=== PATIENT | female | born 1950 | race Caucasian/White ===

== ENCOUNTER → 2018-08-17 | Outpatient (CLI) | payer MEDICARE ==
--- NOTE | 2018-08-17 11:18 | RADIOLOGY REPORT (SQ) ---
EXAM DESCRIPTION: CT ABD/PELVIS WITH IV ORAL COMPLETED DATE/TIME: 08/17/2018 10:29 am REASON FOR STUDY: RIGHT LOWER QUADRANT PAIN R10.31 RIGHT LOWER QUADRANT PAIN R10.813 RIGHT LOWER Q UADRANT ABDOMINAL TENDERNESS COMPARISON: CT abdomen pelvis 04/28/2012 TECHNIQUE: CT scan of the abdomen and pelvis performed using helical scanning technique with dynamic intravenous contrast injection. Patient drank oral contrast. Images reviewed with lung, soft tissue , and bone windows. Reconstructed coronal and sagittal MPR images reviewed. Delayed images for evalua tion of the urinary system also acquired. All images stored on PACS. All CT scanners at this facility use dose modulation, iterative reconstruction, and/or weight based d osing when appropriate to reduce radiation dose to as low as reasonably achievable (ALARA). [facility]: Dose Right [facility]: CareDose [facility]: Dose Right [facility]: Teradose 4D [facility]: [employer] CONTRAST TYPE AND DOSE: contrast/concentration: Isovue 350.00 mg/ml; Total Contrast Delivered: 81.0 ml; Total Saline Delivered: 68.0 ml RENAL FUNCTION: GFR > 60. RADIATION DOSE: CT Rad equipment meets quality standard of care and radiation dose reduction techniq ues were employed. CTDIvol: 5.4 - 6.2 mGy. DLP: 593 mGy-cm.. LIMITATIONS: None. FINDINGS: LOWER CHEST: Lungs are clear. Moderate coronary artery calcifications. Spotty aortic santana ve calcification. LIVER: Normal size. No masses. No dilated ducts. SPLEEN: Normal size. No focal lesions. PANCREAS: No masses. No significant calcifications. No adjacent inflammation or peripancreatic fluid collections. Pancreatic duct not dilated. GALLBLADDER: No identified stones by CT criteria. No inflammatory changes to suggest cholecystitis. ADRENAL GLANDS: No significant masses or asymmetry. RIGHT KIDNEY AND URETER: No solid masses. No significant calcifications. No hydronephrosis or hyd roureter. LEFT KIDNEY AND URETER: No solid masses. No significant calcifications. No hydronephrosis or hydr oureter. AORTA AND VESSELS: No abdominal aortic aneurysm. Celiac artery origin is patent. Dense calcificatio n at the origin of the superior mesenteric artery with greater than 75% stenosis best shown on axial images 28-30, coronal images 44 through 47, and sagittal images 42 through 44. Renal arteries are pa tent. Inferior mesenteric artery patent. No focal stenosis of the common iliac arteries RETROPERITONEUM: No retroperitoneal adenopathy, hemorrhage or masses. BOWEL AND PERITONEAL CAVITY: Patient drank oral contrast. No CT evidence of bowel obstruction or karis e intraperitoneal air or fluid. No colonic diverticuli or CT signs of acute diverticulitis APPENDIX: Normal. PELVIS: No mass. No free fluid. Normal bladder. ABDOMINAL WALL: No masses. No hernias. BONES: No significant or acute findings. OTHER: No other significant finding. 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 TECHNICAL DOCUMENTATION: JOB ID: [id number] Quality ID # [id number]: Final reports with documentation of one or more dose reduction techniques (e.g., Au tomated exposure control, adjustment of the mA and/or kV according to patient size, use of iterative reconstruction technique) 2010 [employer]- All Rights Reserved Reading location - IP/workstation name: [email or web address]
== END ==
LOC: RAD 09:59
PROVIDERS: ATTEND Internal Medicine Gastroenterology
DX: R10.31 Right lower quadrant pain (principal); I77.1 Stricture of artery
CPT/HCPCS: 74177; 82565

== ENCOUNTER → 2018-09-15 | Outpatient (CLI) | payer MEDICARE ==
[~2018-09-15] MED LIST: REGADENOSON INJ 0.4 MG/5 ML DISP.SYRIN IV ONE
--- NOTE | 2018-09-15 13:01 | DRAGON STRESS TEST REPORT ---
Intravenous Lexiscan Cardiolite stress test using single photon emmision computerized tomography. Date of procedure: 09/15/2018. Ordering Provider: Dr. Miroslava Kim. Patient's status: Out Patient. Indication: Shortness Of Breath. Coronary risk factors: Age, tobacco abuse disorder, and family history of coronary artery disease. Resting EKG: Sinus Bradycardia.. No acute changes. Stress EKG: No changes of ischemia. The patient had no chest pain or discomfort. Due to her increased warmth in her head after the injection of IV Lexiscan, the patient had a panic attack, and complaint of shortness of breath. Physical exam showed no wheezing. This subsided and the patient came back to normal state, after drinking Pepsi. There were no EKG changes during this time. There was no arrhythmias seen. Reason for termination: Protocol. Conclusions: Normal EKG and hemodynamic response to IV Lexiscan. Nuclear data: At rest the patient was given 11.13 millicuries of technetium 99m sestamibi injected intravenously. As per protocol rest non gated SPECT images were obtained. Subsequently the patient was given intravenous Lexiscan at a dose of 0.4 mg in 5 mL intravenously, followed by flush with normal saline. Subsequently the stress dose of 34.7 millicuries of technetium 99m sestamibi was injected intravenously. As per protocol stress gated images were obtained. Nuclear interpretation: Review of images showed that all segments of the myocardium had normal perfusion at rest, and normal perfusion post stress with IV Lexiscan. All segments of the myocardium had normal motion, contraction, and thickening by gated study. T. I D. ratio was normal at 1.01. There is no transient ischemic dilatation of the left ventricle. Computer read rest, and stress left ventricular ejection fraction were 70 %, and 65 %, respectively. Conclusion: 1. There is no scintigraphic evidence of Lexiscan induced myocardial ischemia. 2. There is no scintigraphic evidence of myocardial infarction/scar. Recommendations: Aggressive risk factor modification, and treating the underlying co- morbidities. Recommend strong reassurance to the patient., And tobacco cessation counseling. MTDD
== END ==
LOC: RAD 07:11
PROVIDERS: ATTEND Specialist
DX: R06.02 Shortness of breath (principal)
CPT/HCPCS: 93017; 78452; A9500; J2785; Q9969

== ENCOUNTER → 2018-09-16 | Outpatient (CLI) | payer MEDICARE ==
--- NOTE | 2018-09-21 21:35 | XCELERA REPORT ---
[address] [address] Transthoracic Echocardiogram Report Name: REMINGTON STONE Age: 67 yrs Gender: Female : 1950 Patient Status: Outpatient Patient Location: [facility] Study Date: 09/16/2018 11:18 AM Height: 66 in Weight: 155 lb BSA: 1.8 m2 Procedure: A two-dimensional transthoracic echocardiogram with color flow and Doppler was performed. Study Quality: Good. Reason For Study: SOB History: Shortness of breath. Ordering Physician: MIROSLAVA CANTU Performed By: Meng Pugh Interpretation Summary The left ventricle is normal in size. There is normal left ventricular wall thickness. LV EF is > than 65% Left ventricular systolic function is normal. Doppler measurements suggest normal left ventricular diastolic function The left ventricular wall motion is normal. There is no thrombus. There is no ventricular septal defect visualized. The right ventricle is normal in size and function. The right atrium is normal. The left atrial size is normal. The interatrial septum is intact with no evidence for an atrial septal defect. There is no Doppler evidence for an interatrial shunt There is no evidence of mitral valve prolapse. There is no vegetation seen on the mitral valve. There is no mitral valve stenosis. There is a trace amount of mitral regurgitation There is no aortic valvular vegetation. There is no aortic valve stenosis There is no LVOT obstruction. No aortic regurgitation is present. There is no tricuspid stenosis. There is a trace to mild amount of tricuspid regurgitation There is moderate pulmonary hypertension by echo TVSP is 51 to 56 mm of Hg , with RA mean of 5 to 10. There is no pulmonic valvular stenosis. There is a trace amount of pulmonic regurgitation The aortic root is normal size. The inferior vena cava appeared normal and decreased > 50% with respiration (RAP 5-10 mmHg) There is no pericardial effusion. MMode/2D Measurements & Calculations RVDd: 2.9 cm LVIDd: 4.8 cm FS: 37.7 % Ao root diam: 2.6 cm IVSd: 0.81 cm LVIDs: 3.0 cm EDV(Teich): 105.4 ml Ao root area: 5.5 cm2 LVPWd: 0.84 cm ESV(Teich): 34.1 ml LA dimension: 3.0 cm EF(Teich): 67.7 % Doppler Measurements & Calculations MV E max amberly: MV P1/2t max amberly: Ao V2 max: LV V1 max P.2 cm/sec 86.4 cm/sec 146.6 cm/sec 6.6 mmHg MV A max amberly: MV P1/2t: 92.8 msec Ao max PG: LV V1 max: 69.7 cm/sec MVA(P1/2t): 2.4 cm2 8.6 mmHg 128.8 cm/sec MV E/A: 1.2 MV dec slope: 272.6 cm/sec2 MV dec time: 0.22 sec PA V2 max: PI end-d amberyl: TR max amberly: MV P1/2t-pr_phl: 80.5 cm/sec 58.9 cm/sec 336.6 cm/sec 92.8 msec PA max PG: TR max P.6 mmHg 45.3 mmHg Left Ventricle The left ventricle is normal in size. There is normal left ventricular wall thickness. LV EF is > than 65%. Left ventricular systolic function is normal. Doppler measurements suggest normal left ventricular diastolic function. The left ventricular wall motion is normal. There is no thrombus. There is no ventricular septal defect visualized. Right Ventricle The right ventricle is normal in size and function. Atria The right atrium is normal. The left atrial size is normal. The interatrial septum is intact with no evidence for an atrial septal defect. There is no Doppler evidence for an interatrial shunt. Mitral Valve There is no evidence of mitral valve prolapse. There is no vegetation seen on the mitral valve. There is no mitral valve stenosis. There is a trace amount of mitral regurgitation. Aortic Valve There is no aortic valvular vegetation. There is no aortic valve stenosis. There is no LVOT obstruction. No aortic regurgitation is present. Tricuspid Valve There is no tricuspid stenosis. There is a trace to mild amount of tricuspid regurgitation. There is moderate pulmonary hypertension by echo. TVSP is 51 to 56 mm of Hg , with RA mean of 5 to 10. Pulmonic Valve There is no pulmonic valvular stenosis. There is a trace amount of pulmonic regurgitation. Great Vessels The aortic root is normal size. The inferior vena cava appeared normal and decreased > 50% with respiration (RAP 5-10 mmHg). Effusions There is no pericardial effusion. : MIROSLAVA CANTU > Miroslava Cantu
== END ==
LOC: SP 11:42
PROVIDERS: ATTEND Specialist
DX: R06.02 Shortness of breath (principal)
CPT/HCPCS: 93306

== ENCOUNTER 2018-11-12 12:34 | Emergency (ER) | payer MEDICARE ==
--- NOTE | 2018-11-12 13:24 | EKG REPORT ---
SEVERITY:- BORDERLINE ECG - SINUS OR ECTOPIC ATRIAL RHYTHM SHORT NC INTERVAL, ACCELERATED AV CONDUCTION BORDERLINE LEFT AXIS DEVIATION : Confirmed by: Mandeep Nieto MD 12-Nov-2018 13:23:37
--- NOTE | 2018-11-12 14:23 | ER Document Report ---
ED Medical Screen (RME) - General Chief Complaint: Chest Pain Stated Complaint: SHORT OF BREATH,NAUSEA Time Seen by Provider: 11/12/18 14:07 Primary Care Provider: CHRISTINA CANTU MD [Primary Care Provider] - Follow up as needed Notes: Patient is a 67-year-old female that presents to the emergency department for chief complaint of shortness of breath and chest pain as well as dyspnea on exertion. ROS: Other than noted above, the 12 point review of systems was reviewed with the patient and were negative, all pertinent findings are included in the HPI. PHYSICAL EXAMINATION: Vital signs reviewed. GENERAL: Well-appearing, well-nourished and in no acute distress. HEAD: Atraumatic, normocephalic. EYES: Pupils equal round extraocular movements intact, conjunctiva are normal. ENT: Nares patent NECK: Normal range of motion CV: Heart regular rate and rhythm LUNGS: No respiratory distress, clear to auscultation bilaterally Musculoskeletal: Normal range of motion NEUROLOGICAL: Normal speech PSYCH: Normal mood, normal affect. MDM: Patient seen and examined for rapid initial assessment. Vital signs reviewed. A comprehensive ED assessment and evaluation of the patient, analysis of test results and completion of the medical decision making process will be conducted by additional ED providers. *Note is created using voice recognition software and may contain spelling, syntax or grammatical errors. TRAVEL OUTSIDE OF THE [place] IN LAST 30 DAYS: No - Related Data Allergies/Adverse Reactions: acetaminophen [From Percocet] Allergy (Intermediate, Verified 08/09/12 08:45) Generalized Itching oxycodone HCl [From Percocet] Allergy (Intermediate, Verified 08/09/12 08:45) Generalized Itching Past Medical History - Past Medical History Cardiac Medical History: Denies: Hx Coronary Artery Disease, Hx Heart Attack, Hx Hypertension Pulmonary Medical History: Reports: Hx Bronchitis, Hx Pneumonia Denies: Hx Asthma, Hx COPD Neurological Medical History: Denies: Hx Cerebrovascular Accident, Hx Seizures Renal/ Medical History: Denies: Hx Peritoneal Dialysis GI Medical History: Denies: Hx Hepatitis, Hx Hiatal Hernia, Hx Ulcer Musculoskeltal Medical History: Denies Hx Arthritis Infectious Medical History: Denies: Hx Hepatitis Past Surgical History: Reports: Hx Hysterectomy - MOISES. Denies: Hx Mastectomy, Hx Open Heart Surgery, Hx Pacemaker - Immunizations Hx Diphtheria, Pertussis, Tetanus Vaccination: Yes Physical Exam - Vital signs Vitals: Temp Pulse Resp BP Pulse Ox 98.3 F 77 16 116/81 100 11/12/18 12:53 11/12/18 12:53 11/12/18 12:53 11/12/18 12:53 11/12/18 12:53 Course - Vital Signs Vital signs: Temp Pulse Resp BP Pulse Ox 98.3 F 77 16 116/81 100 11/12/18 12:53 11/12/18 12:53 11/12/18 12:53 11/12/18 12:53 11/12/18 12:53 Doctor's Discharge - Discharge Referrals: CHRISTINA CANTU MD [Primary Care Provider] - Follow up as needed
[2018-11-12 15:12] LABS: ABSOLUTE BASOPHILS # (AUTO) 0.1 10^3/uL (0.0-0.2); ABSOLUTE EOSINOPHILS # (AUTO) 0.1 10^3/uL (0.0-0.6); ABSOLUTE LYMPHOCYTES (AUTO) 1.5 10^3/uL (0.5-4.7); ABSOLUTE MONOCYTES (AUTO) 0.4 10^3/uL (0.1-1.4); ABSOLUTE NEUT (AUTO) 3.4 10^3/uL (1.7-8.2); EOSINOPHILS % (AUTO) 2.1 % (0-6); LYMPHOCYTES % (AUTO) 27.1 % (13-45); MEAN CORPUSCULAR HEMOGLOBIN 27.3 pg (27.0-33.4); MEAN CORPUSCULAR HGB CONC 32.8 g/dL (32.0-36.0); MEAN CORPUSCULAR VOLUME 83 fl (80-97); MONOCYTES % (AUTO) 6.8 % (3-13); PLATELET COUNT 331 10^3/uL (150-450); RED BLOOD COUNT 2.16 10^6/uL (3.72-5.28); RED CELL DISTRIBUTION WIDTH 15.5 % (11.5-14.0); TOTAL CELLS COUNTED % (AUTO) 100 %; WHITE BLOOD COUNT 5.5 10^3/uL (4.0-10.5)
[2018-11-12 15:17] LABS: HEMOGLOBIN 5.9 g/dL (12.0-15.5)
[2018-11-12] MEDS ORDERED: NORMAL SALINE 250 ML IV PRN (15:18)
[2018-11-12 15:36] LABS: ALANINE AMINOTRANSFERASE 42 U/L (9-52); ALBUMIN 4.5 g/dL (3.5-5.0); ALKALINE PHOSPHATASE 112 U/L (38-126); ANION GAP 8 (5-19); ASPARTATE AMINO TRANSFERASE 34 U/L (14-36); BILIRUBIN,DIRECT 0.1 mg/dL (0.0-0.4); BILIRUBIN,TOTAL 0.3 mg/dL (0.2-1.3); BLOOD UREA NITROGEN 8 mg/dL (7-20); CALCIUM 9.9 mg/dL (8.4-10.2); CARBON DIOXIDE 24 mmol/L (22-30); CHLORIDE 108 mmol/L (98-107); CREATINE KINASE 74 U/L (30-135); GLUCOSE 96 mg/dL (75-110); POTASSIUM 4.3 mmol/L (3.6-5.0); SODIUM 140.1 mmol/L (137-145); TOTAL PROTEIN 6.7 g/dL (6.3-8.2)
--- NOTE | 2018-11-12 15:41 | RADIOLOGY REPORT (SQ) ---
EXAM DESCRIPTION: CHEST SINGLE VIEW COMPLETED DATE/TIME: 11/12/2018 3:33 pm REASON FOR STUDY: shortness of breath COMPARISON: AP CHEST 08/08/2010 EXAM PARAMETERS: NUMBER OF VIEWS: One view. TECHNIQUE: Single frontal radiographic view of the chest acquired. RADIATION DOSE: NA LIMITATIONS: None. FINDINGS: LUNGS AND PLEURA: No opacities, masses or pneumothorax. No pleural effusion. MEDIASTINUM AND HILAR STRUCTURES: No masses. Contour normal. HEART AND VASCULAR STRUCTURES: Heart normal in size. Normal vasculature. BONES: No acute findings. HARDWARE: None in the chest. OTHER: No other significant finding. IMPRESSION: NO ACUTE RADIOGRAPHIC FINDING IN THE CHEST. TECHNICAL DOCUMENTATION: JOB ID: [id number] [employer]- All Rights Reserved Reading location - IP/workstation name: [email or web address]
[2018-11-12 15:47] LABS: CREATINE KINASE MB 0.71 ng/mL (<4.55); NT PRO BNP 504 pg/mL (5-900); TROPONIN I < 0.012 ng/mL
--- NOTE | 2018-11-12 15:51 | ER Document Report ---
ED General - General Chief Complaint: Chest Pain Stated Complaint: SHORT OF BREATH,NAUSEA Time Seen by Provider: 11/12/18 14:07 Primary Care Provider: CHRISTINA CANTU MD [ACTIVE STAFF] - Follow up as needed Mode of Arrival: Ambulatory Information source: Patient Notes: 67-year-old female presents emergency department complaints of chest tightness, shortness of breath, nausea, lightheadedness that is been going on for the last couple of days. Patient states that she went to [facility] and had a mesenteric stent placed by Dr. Singleton, vascular surgery approximately 8 weeks ago. She states that initially she was on aspirin and Plavix. She states that she began having some dark stools and contacted Dr. Singleton and was told to stop the Plavix. Patient states that she is just been taking the aspirin and atorvastatin. She states over the last couple of days she has had a pressure sensation in the left chest. No radiation of the pain. No alleviating or exac erbating factors. She is also had shortness of breath with exertion. She states that she does smoke but denies a history of COPD. She is not on home oxygen and does not use any DuoNeb treatments. Patient denies a history of coronary artery disease, diabetes, hypertension, family history of coronary artery disease. She states that she does have a history of hyperlipidemia. She denies any history of DVT, PE, calf pain, leg swelling. She denies abdominal pain, diarrhea, constipation. TRAVEL OUTSIDE OF THE [place] IN LAST 30 DAYS: No - HPI Onset: Last week Onset/Duration: Gradual, Persistent Quality of pain: Pressure Severity: Mild Associated symptoms: Shortness of breath Exacerbated by: Walking Relieved by: Denies Similar symptoms previously: No Recently seen / treated by doctor: No - Related Data Allergies/Adverse Reactions: acetaminophen [From Percocet] Allergy (Intermediate, Verified 08/09/12 08:45) Generalized Itching oxycodone HCl [From Percocet] Allergy (Intermediate, Verified 08/09/12 08:45) Generalized Itching Past Medical History - General Information source: Patient - Social History Smoking Status: Current Every Day Smoker Family History: CAD - Father of a massive PR in his 60s, the mother is alive and well and quite active at 78. The patient reports that phenotypically she looks like her mother. Patient has suicidal ideation: No Patient has homicidal ideation: No - Past Medical History Cardiac Medical History: Denies: Hx Coronary Artery Disease, Hx Heart Attack, Hx Hypertension Pulmonary Medical History: Reports: Hx Bronchitis, Hx Pneumonia Denies: Hx Asthma, Hx COPD Neurological Medical History: Denies: Hx Cerebrovascular Accident, Hx Seizures Renal/ Medical History: Denies: Hx Peritoneal Dialysis GI Medical History: Denies: Hx Hepatitis, Hx Hiatal Hernia, Hx Ulcer Musculoskeletal Medical History: Denies Hx Arthritis Infectious Medical History: Denies: Hx Hepatitis Past Surgical History: Reports: Hx Hysterectomy - MOISES. Denies: Hx Mastectomy, Hx Open Heart Surgery, Hx Pacemaker - Immunizations Hx Diphtheria, Pertussis, Tetanus Vaccination: Yes Review of Systems - Review of Systems Constitutional: No symptoms reported EENT: No symptoms reported Cardiovascular: Chest pain Respiratory: No symptoms reported Gastrointestinal: No symptoms reported Genitourinary: No symptoms reported Musculoskeletal: No symptoms reported Skin: No symptoms reported Hematologic/Lymphatic: No symptoms reported Neurological/Psychological: No symptoms reported -: Yes All other systems reviewed and negative Physical Exam - Vital signs Vitals: Temp Pulse Resp BP Pulse Ox 98.3 F 77 16 116/81 100 11/12/18 12:53 11/12/18 12:53 11/12/18 12:53 11/12/18 12:53 11/12/18 12:53 - Notes Notes: PHYSICAL EXAMINATION: GENERAL: Well-appearing, well-nourished and in no acute distress. HEAD: Atraumatic, normocephalic. EYES: Pupils equal round and reactive to light, extraocular movements intact, conjunctiva are normal. ENT: Nares patent, oropharynx clear without exudates. Moist mucous membranes. NECK: Normal range of motion, supple without lymphadenopathy LUNGS: Breath sounds clear to auscultation bilaterally and equal. No wheezes rales or rhonchi. HEART: Regular rate and rhythm without murmurs ABDOMEN: Soft, nontender, nondistended abdomen. No guarding, no rebound. No masses appreciated. Female : deferred Musculoskeletal: Normal range of motion, no pitting or edema. No cyanosis. NEUROLOGICAL: Cranial nerves grossly intact. Normal speech, normal gait. Normal sensory, motor exams PSYCH: Normal mood, normal affect. SKIN: Warm, Dry, normal turgor, no rashes or lesions noted. Course - Re-evaluation Re-evalutation: 11/12/18 15:50 EKG: Ventricular rate 78, OR interval 96, QRS duration 84, QTc 447, sinus rhythm. No ST segment elevation. 11/12/18 16:47 Patient's hemoglobin is 5.9. 2 units of packed red blood cells were ordered. Rectal exam done. Patient had Hemoccult positive stool. The remainder of the patient's labs were within normal limits. Chest x-ray did not show an acute process. D-dimer was normal. I feel that the patient's symptoms are releated to the anemia. I spoke with the general surgeon on-call, Dr. Poe. He is agreeable with consulting on the patient if necessary. I spoke with the hospitalist clinical rehab liaison. Dr. Goel is agreeable with admission. 11/12/18 17:40 Dr. Poe called me back and said that with her history of the mesenteric genie nts that she needs to go back to [facility]. I contacted [facility] for transfer. is agreeable with transfer. - Vital Signs Vital signs: Temp Pulse Resp BP Pulse Ox 98.3 F 77 16 116/81 100 11/12/18 12:53 11/12/18 12:53 11/12/18 12:53 11/12/18 12:53 11/12/18 12:53 - Laboratory Result Diagrams: 11/12/18 14:56 11/12/18 14:56 Laboratory results interpreted by me: 11/12/18 11/12/18 11/12/18 14:56 14:56 15:47 RBC 2.16 L Hgb 5.9 L Hct 18.0 L RDW 15.5 H Chloride 108 H Crossmatch See Detail Discharge - Discharge Clinical Impression: GI bleed Qualifiers: GI bleed type/associated pathology: melena Qualified Code(s): K92.1 - Melena Anemia Qualifiers: Anemia type: unspecified type Qualified Code(s): D64.9 - Anemia, unspecified Chest pain Qualifiers: Chest pain type: unspecified Qualified Code(s): R07.9 - Chest pain, unspecified Dyspnea Qualifiers: Dyspnea type: dyspnea on exertion Qualified Code(s): R06.09 - Other forms of dyspnea Condition: Stable Disposition: [facility] Referrals: CHRISTINA CANTU MD [ACTIVE STAFF] - Follow up as needed
[2018-11-12] MEDS ORDERED: PANTOPRAZOLE SODIUM 40 MG VIAL IV ONE (16:32)
[2018-11-12] MEDS ORDERED: PANTOPRAZOLE SODIUM 40 MG VIAL IV PRN (16:32)
[2018-11-12 16:35] LABS: INTERNATIONAL RATION (INR) 0.92; PROTHROMBIN TIME 12.8 SEC (11.4-15.4)
[2018-11-12 16:36] LABS: PARTIAL THROMBOPLASTIN TIME 29.1 SEC (23.5-35.8)
[2018-11-12 20:54] VITALS: BP 113/58
== END 2018-11-12 21:00 | disposition short-term general hospital (02) ==
LOC: ER 12:34 → UNDOADMOB 16:55 → EH 16:55 → ER 21:00
DX: K92.1 Melena (principal); D64.9 Anemia, unspecified; R07.9 Chest pain, unspecified; R06.09 Other forms of dyspnea; R06.02 Shortness of breath; R11.0 Nausea; R42 Dizziness and giddiness; F17.200 Nicotine dependence, unspecified, uncomplicated; Z90.710 Acquired absence of both cervix and uterus
CPT/HCPCS: 93005; 99285; 96361; 96374; 86900; 86901; 36415; 82553; 36430; 86850; 82550; 85025; 85610; 85730; 80053; 84484; 86920; 85379; 83880; 71045; 93010; P9016; C9113; J7050; S0164

== ENCOUNTER 2018-12-02 13:36 | Emergency (ER) | payer MEDICARE ==
--- NOTE | 2018-12-02 14:46 | ER Document Report ---
ED Medical Screen (RME) - General Chief Complaint: Chest Pain > 30 Stated Complaint: CHEST PAIN, DIZZY Time Seen by Provider: 12/02/18 14:28 TRAVEL OUTSIDE OF THE [place] IN LAST 30 DAYS: No - HPI Notes: 12/02/18 14:39 67-year-old female presents today with complaints of substernal chest pain with shortness of breath that started approximately 3 hours ago, has come slightly better. States she feels chest tightness and is exacerbated with exertion, denies any radiation of pain. Patient recently had stress test done in July 2018. Patient has a medical history of having a mesenteric stent placed in [place] by Dr. Singleton who is a vascular surgeon in September 2018 and placed on Plavix. Like chart continue present pndPt then returned to [facility] in October 2018 shortness of breath and she showed to have anemia in which she needed blood transfusion, pt was transferred back to [place] where they did an endoscope to check for GI bleed per patient., She states she does not have a GI bleed, has follow-up with her primary care provider, Dr. Freddie Raines at [facility], was seen yesterday and had blood work done. Patient states this chest pain has occurred in the past and does seem to be slightly the same. She is not sure if this is anxiety or angina. I have greeted and performed a rapid initial assessment of this patient. A comprehensive ED assessment and evaluation of the patient, analysis of test results and completion of medical decision making process will be conducted by an additional ED providers. - Related Data Allergies/Adverse Reactions: oxycodone HCl [From Percocet] Allergy (Intermediate, Verified 12/02/18 14:31) Generalized Itching Past Medical History - Social History Chew tobacco use (# tins/day): No Frequency of alcohol use: Occasional Drug Abuse: None - Past Medical History Cardiac Medical History: Reports: Hx Hypercholesterolemia Denies: Hx Coronary Artery Disease, Hx Heart Attack, Hx Hypertension Pulmonary Medical History: Reports: Hx Bronchitis, Hx Pneumonia Denies: Hx Asthma, Hx COPD Neurological Medical History: Denies: Hx Cerebrovascular Accident, Hx Seizures Renal/ Medical History: Denies: Hx Peritoneal Dialysis GI Medical History: Denies: Hx Hepatitis, Hx Hiatal Hernia, Hx Ulcer Musculoskeltal Medical History: Denies Hx Arthritis Infectious Medical History: Denies: Hx Hepatitis Past Surgical History: Reports: Hx Hysterectomy. Denies: Hx Mastectomy, Hx Open Heart Surgery, Hx Pacemaker - Immunizations Hx Diphtheria, Pertussis, Tetanus Vaccination: Yes Physical Exam - Vital signs Vitals: Temp Pulse Resp BP Pulse Ox 97.7 F 62 16 135/62 H 100 12/02/18 13:52 12/02/18 13:52 12/02/18 13:52 12/02/18 13:52 12/02/18 13:52 - Respiratory Respiratory status: No respiratory distress Chest status: Nontender Breath sounds: Normal Chest palpation: Normal - Cardiovascular Rhythm: Regular Heart sounds: Normal auscultation Course - Vital Signs Vital signs: Temp Pulse Resp BP Pulse Ox 97.7 F 62 16 135/62 H 100 12/02/18 13:52 12/02/18 13:52 12/02/18 13:52 12/02/18 13:52 12/02/18 13:52
[2018-12-02 15:40] LABS: ABSOLUTE BASOPHILS # (AUTO) 0.1 10^3/uL (0.0-0.2); ABSOLUTE EOSINOPHILS # (AUTO) 0.2 10^3/uL (0.0-0.6); ABSOLUTE LYMPHOCYTES (AUTO) 1.9 10^3/uL (0.5-4.7); ABSOLUTE MONOCYTES (AUTO) 0.5 10^3/uL (0.1-1.4); ABSOLUTE NEUT (AUTO) 3.4 10^3/uL (1.7-8.2); BASOPHILS % (AUTO) 2.1 % (0-2); EOSINOPHILS % (AUTO) 3.6 % (0-6); HEMATOCRIT 25.6 % (36.0-47.0); HEMOGLOBIN 8.6 g/dL (12.0-15.5); LYMPHOCYTES % (AUTO) 30.9 % (13-45); MEAN CORPUSCULAR HEMOGLOBIN 27.6 pg (27.0-33.4); MEAN CORPUSCULAR HGB CONC 33.6 g/dL (32.0-36.0); MEAN CORPUSCULAR VOLUME 82 fl (80-97); MONOCYTES % (AUTO) 7.6 % (3-13); PLATELET COUNT 441 10^3/uL (150-450); RED BLOOD COUNT 3.11 10^6/uL (3.72-5.28); RED CELL DISTRIBUTION WIDTH 16.6 % (11.5-14.0); SEGMENTED NEUTROPHILS % (AUTO) 55.8 % (42-78); TOTAL CELLS COUNTED % (AUTO) 100 %; WHITE BLOOD COUNT 6.1 10^3/uL (4.0-10.5)
[2018-12-02 15:52] LABS: ALANINE AMINOTRANSFERASE 22 U/L (9-52); ALBUMIN 4.6 g/dL (3.5-5.0); ALKALINE PHOSPHATASE 97 U/L (38-126); ANION GAP 10 (5-19); ASPARTATE AMINO TRANSFERASE 24 U/L (14-36); BILIRUBIN,DIRECT 0.3 mg/dL (0.0-0.4); BILIRUBIN,TOTAL 0.4 mg/dL (0.2-1.3); BLOOD UREA NITROGEN 14 mg/dL (7-20); CALCIUM 10.7 mg/dL (8.4-10.2); CARBON DIOXIDE 25 mmol/L (22-30); CHLORIDE 105 mmol/L (98-107); CREATINE KINASE 63 U/L (30-135); GLUCOSE 91 mg/dL (75-110); POTASSIUM 4.1 mmol/L (3.6-5.0); SODIUM 139.5 mmol/L (137-145)
--- NOTE | 2018-12-02 16:02 | RADIOLOGY REPORT (SQ) ---
EXAM DESCRIPTION: CHEST 2 VIEWS COMPLETED DATE/TIME: 12/02/2018 3:51 pm REASON FOR STUDY: cp COMPARISON: 11/12/2018 EXAM PARAMETERS: NUMBER OF VIEWS: two views TECHNIQUE: Digital Frontal and Lateral radiographic views of the chest acquired. RADIATION DOSE: NA LIMITATIONS: none FINDINGS: LUNGS AND PLEURA: No opacities, masses or pneumothorax. No pleural effusion. MEDIASTINUM AND HILAR STRUCTURES: No masses or contour abnormalities. HEART AND VASCULAR STRUCTURES: Heart normal size. No evidence for failure. BONES: No acute findings. HARDWARE: None in the chest. OTHER: No other significant finding. IMPRESSION: NO ACUTE RADIOGRAPHIC FINDING IN THE CHEST. TECHNICAL DOCUMENTATION: JOB ID: [id number] [employer]- All Rights Reserved Reading location - IP/workstation name: [email or web address]
[2018-12-02 16:05] LABS: TROPONIN I < 0.012 ng/mL
--- NOTE | 2018-12-02 18:55 | EKG REPORT ---
SEVERITY:- ABNORMAL ECG - SINUS RHYTHM LAD, CONSIDER LEFT ANTERIOR FASCICULAR BLOCK : Confirmed by: Mandeep Nieto MD 02-Dec-2018 18:54:26
[2018-12-02 20:17] VITALS: BP 116/51
--- NOTE | 2018-12-02 20:25 | ER Document Report ---
Entered by MAXINE RDZ SCRIBE 12/02/18 1819 Acting as scribe for:TYSON FINN DO ED General - General Chief Complaint: Chest Pain > 30 Stated Complaint: CHEST PAIN, DIZZY Time Seen by Provider: 12/02/18 14:28 Mode of Arrival: Ambulatory Information source: Patient Notes: Patient is a 67-year-old female presenting to the emergency department accompanied by mother complaining of chest pain, shortness of breath and lightheadedness onset today. Patient states she was playing with her dog when the symptoms were suddenly onset approximately 3 hours prior to arrival. She describes her chest pain as "a pain in the ass" that is exacerbated on exertion. Patient states she had similar symptoms on 11/12/18 and was diagnosed with anemia (5.5 hgb) and a GI bleed and transferred to [place]. Patient states they were unable to pinpoint the source of the bleeding. She also complains of general fatigue over the last week. She denies any vomiting or dark, tarry stools. Of significance, she states she had an mesenteric stent place in [place] by Dr. Singleton early 10/2018. She also had a stress test done in which showed no ischemia. She states she follows up with Dr. Raines at [facility] and had an appointment yesterday where blood work was done. Patient is currently prescribed atorvastatin and a daily aspirin. TRAVEL OUTSIDE OF THE [place] IN LAST 30 DAYS: No - Related Data Allergies/Adverse Reactions: oxycodone HCl [From Percocet] Allergy (Intermediate, Verified 12/02/18 14:31) Generalized Itching Past Medical History - General Information source: Patient - Social History Smoking Status: Current Every Day Smoker Chew tobacco use (# tins/day): No Frequency of alcohol use: Occasional Drug Abuse: None Family History: CAD - Father of a massive [place] in his 60s, the mother is alive and well and quite active at 78. The patient reports that phenotypically she looks like her mother. Patient has suicidal ideation: No Patient has homicidal ideation: No - Past Medical History Cardiac Medical History: Reports: Hx Hypercholesterolemia Pulmonary Medical History: Reports: Hx Bronchitis, Hx Pneumonia Past Surgical History: Reports: Hx Hysterectomy - Immunizations Hx Diphtheria, Pertussis, Tetanus Vaccination: Yes Review of Systems - Review of Systems Constitutional: No symptoms reported EENT: No symptoms reported Cardiovascular: See HPI, Chest pain, Lightheaded Respiratory: See HPI, Short of breath Gastrointestinal: No symptoms reported Genitourinary: No symptoms reported Female Genitourinary: No symptoms reported Musculoskeletal: No symptoms reported Skin: No symptoms reported Hematologic/Lymphatic: No symptoms reported Neurological/Psychological: No symptoms reported -: Yes All other systems reviewed and negative Physical Exam - Vital signs Vitals: Temp Pulse Resp BP Pulse Ox 97.7 F 62 16 135/62 H 100 12/02/18 13:52 12/02/18 13:52 12/02/18 13:52 12/02/18 13:52 12/02/18 13:52 - Notes Notes: GENERAL: Alert, interacts well. No acute distress. HEAD: Normocephalic, atraumatic. EYES: Pupils equal, round, and reactive to light. Extraocular movements intact. ENT: Oral mucosa moist, tongue midline. NECK: Full range of motion. Supple. Trachea midline. LUNGS: Clear to auscultation bilaterally, no wheezes, rales, or rhonchi. No respiratory distress. HEART: Bradycardic. No murmurs, gallops, or rubs. ABDOMEN: Soft, non-tender. Non-distended. Bowel sounds present in all 4 quadrants. No guarding, rigidity, or rebound. EXTREMITIES: Moves all 4 extremities spontaneously. No edema, radial and dorsalis pedis pulses 2/4 bilaterally. No cyanosis. NEUROLOGICAL: Alert and oriented x3. Normal speech. PSYCH: Normal affect, normal mood. SKIN: Warm, dry, normal turgor. No rashes or lesions noted. RECTAL: No hemorrhoids, fissures or gross amount of blood. Positive heme occult at bedside. Course - Re-evaluation Re-evalutation: 12/02/18 20:22 CBC shows anemia with hemoglobin 8.6, we do not know what her discharge hemoglobin was from [place] but it significantly better from when she was here previously at 5 and some change, CMP unremarkable, cardiac enzymes negative x2, Hemoccult is faintly positive, chest x-ray shows no acute process. EKG is nonischemic. Discussed her symptoms with Dr. Kim who recommended she be discharged home as she is having occult bleeding and has had a full workup, he suspects an AV malformation and says that he would not recommend catheterization for her unless she had persistent recurrent pain with EKG changes. Recommend giving her his cell phone number so that she can call him with any or increasing chest pain. She will follow-up with him as an outpatient. - Vital Signs Vital signs: Temp Pulse Resp BP Pulse Ox 97.7 F 62 19 116/51 L 100 12/02/18 13:52 12/02/18 13:52 12/02/18 20:01 12/02/18 20:01 12/02/18 20:01 - Laboratory Result Diagrams: 12/02/18 15:00 12/02/18 15:00 Laboratory results interpreted by me: 12/02/18 12/02/18 15:00 15:00 RBC 3.11 L Hgb 8.6 L Hct 25.6 L RDW 16.6 H Basophils % 2.1 H Est GFR (Non-Af Amer) 52 L Calcium 10.7 H - EKG Interpretation by Me Additional EKG results interpreted by me: 12/02/18 20:23 EKG shows sinus bradycardia at a rate of 56, left axis deviation, normal intervals, no ST segment elevations or depressions, no T wave inversions per my interpretation. Discharge - Discharge Clinical Impression: Chronic blood loss anemia Chest pain Qualifiers: Chest pain type: precordial pain Qualified Code(s): R07.2 - Precordial pain Condition: Stable Disposition: HOME, SELF-CARE Additional Instructions: Please have Dr. Raines recheck your hemoglobin on Thursday. Today was 8.6. Please return to the emergency department if you develop dark black tarry stools or diarrhea. Dr. Kim is recommended to follow-up with him as an outpatient as your heart attack enzymes are negative twice in the emergency department. He is given me his cell phone number to give to you if you have recurrent chest pain. His number is [phone]. I personally performed the services described in the documentation, reviewed and edited the documentation which was dictated to the scribe in my presence, and it accurately records my words and actions.
== END 2018-12-02 20:29 | disposition home or self-care (01) ==
LOC: ER 13:36
DX: D50.0 Iron deficiency anemia secondary to blood loss (chronic) (principal); R07.2 Precordial pain; R06.02 Shortness of breath; R42 Dizziness and giddiness; E78.00 Pure hypercholesterolemia, unspecified; Z88.6 Allergy status to analgesic agent; Z90.710 Acquired absence of both cervix and uterus
CPT/HCPCS: 36415; 71046; 80053; 82550; 82553; 84484; 85025; 93005; 93010; 99284

== ENCOUNTER → 2020-01-23 | Outpatient (CLI) | payer MEDICARE ==
--- NOTE | 2020-01-23 11:25 | RADIOLOGY REPORT (SQ) ---
EXAM DESCRIPTION: CT HEAD WITH IMAGES COMPLETED DATE/TIME: 01/23/2020 10:03 am REASON FOR STUDY: MEMORY LOSS (R41.3)FACIAL WEAKNESS FOLLOWING UNSPEC CEREBROV (I69.992) I69.992 FA CIAL WEAKNESS FOLLOWING UNSP CEREBROVASCULAR DISEA R41.3 OTHER AMNESIA COMPARISON: None. TECHNIQUE: Axial images acquired through the brain with intravenous contrast. Images reviewed with b one, brain and subdural windows. Images stored on PACS. All CT scanners at this facility use dose modulation, iterative reconstruction, and/or weight based d osing when appropriate to reduce radiation dose to as low as reasonably achievable (ALARA). [facility]: Dose Right [facility]: CareDose [facility]: Dose Right [facility]: Teradose 4D [facility]: Venustech CONTRAST TYPE AND DOSE: Contrast/concentration: Isovue 350.00 mg/ml; Total Contrast Delivered: 50.0 ml; Total Saline Delivered: 55.0 ml RENAL FUNCTION: Creatinine 0.8 milligrams/deciliter. RADIATION DOSE: CT Rad equipment meets quality standard of care and radiation dose reduction techniq ues were employed. CTDIvol: 48.5 - 48.6 mGy. DLP: 1710 mGy-cm. LIMITATIONS: None. FINDINGS: There is no acute intracranial hemorrhage, vascular territorial infarct, extra-axial fluid collection, mass, mass effect or midline shift. The martinez-white matter differentiation is preserved. There is no effacement of the cerebral sulci or basal subarachnoid cisterns. The caliber the ventr icles is concordant with the degree of sulcation. The deep cerebral veins and dural sinuses are patent. There is no pathologic intracranial enhancemen t. The orbits and globes are intact. The paranasal sinuses are clear. There is no fracture of the calv arium. IMPRESSION: No acute intracranial abnormality. EVIDENCE OF ACUTE STROKE: NO. TECHNICAL DOCUMENTATION: JOB ID: [id number] Quality ID # [id number]: Final reports with documentation of one or more dose reduction techniques (e.g., Au tomated exposure control, adjustment of the mA and/or kV according to patient size, use of iterative reconstruction technique) 2010 [employer]- All Rights Reserved Reading location - IP/workstation name: [email or web address]
== END ==
LOC: RAD 09:18
PROVIDERS: ATTEND Specialist
DX: I69.992 Facial weakness following unspecified cerebrovascular disease (principal); R41.3 Other amnesia
CPT/HCPCS: 70460; 82565

== ENCOUNTER → 2020-02-08 | Outpatient (CLI) | payer MEDICARE ==
[2020-02-08 14:50] LABS: FREE T3 4.43 pg/mL (2.77-5.27); FREE T4 (FREE THYROXINE) 0.89 ng/dL (0.78-2.19)
[2020-02-08 15:03] LABS: THYROID STIMULATING HORMONE 0.74 uIU/mL (0.47-4.68)
== END ==
LOC: OD 12:53
PROVIDERS: ATTEND Specialist
DX: J44.9 Chronic obstructive pulmonary disease, unspecified (principal); F17.218 Nicotine dependence, cigarettes, with other nicotine-induced disorders; K55.1 Chronic vascular disorders of intestine; D64.9 Anemia, unspecified; E78.5 Hyperlipidemia, unspecified; F40.240 Claustrophobia; R01.1 Cardiac murmur, unspecified; R41.3 Other amnesia; R41.9 Unspecified symptoms and signs involving cognitive functions and awareness; R94.31 Abnormal electrocardiogram [ECG] [EKG]; Z13.29 Encounter for screening for other suspected endocrine disorder; Z79.899 Other long term (current) drug therapy
CPT/HCPCS: 36415; 82607; 84439; 84443; 84481

== ENCOUNTER 2020-09-22 08:56 | Emergency (ER) | payer SELFPAY ==
--- NOTE | 2020-09-22 10:28 | ER Document Report ---
ED General - General Chief Complaint: Chest Pain Stated Complaint: BREATHING DIFFICULTY Primary Care Provider: CHRISTINA CANTU MD [Primary Care Provider] - Follow up as needed TRAVEL OUTSIDE OF THE [place] IN LAST 30 DAYS: No - HPI Notes: 69-year-old female with a history of hyperlipidemia presents to the emergency room today with complaints of substernal chest pain that started throughout the night, reports chest pressure comes and goes lasting a few minutes and then goes away with concurrent shortness of breath at rest. Denies any radiation of pain, denies any nausea vomiting diarrhea or abdominal pain. Patient reports she is a pack-a-day smoker for the last 40 years. Reports father from massive CVA mother from dementia. Reports she did have cardiac issues in the past, she did have a stress test done 2 years ago which was normal at [facility], has not seen a licensed surveyor since that time. Denies any trauma to chest. - Related Data Allergies/Adverse Reactions: oxycodone HCl [From Percocet] Allergy (Intermediate, Verified 12/02/18 14:31) Generalized Itching Past Medical History - General Information source: Patient - Social History Smoking Status: Unknown if Ever Smoked Family History: CAD - Father of a massive [place] in his 60s, the mother is alive and well and quite active at 78. The patient reports that phenotypically she looks like her mother. - Past Medical History Cardiac Medical History: Reports: Hx Hypercholesterolemia Denies: Hx Coronary Artery Disease, Hx Heart Attack, Hx Hypertension Pulmonary Medical History: Reports: Hx Bronchitis, Hx Pneumonia Denies: Hx Asthma, Hx COPD Neurological Medical History: Denies: Hx Cerebrovascular Accident, Hx Seizures Renal/ Medical History: Denies: Hx Peritoneal Dialysis GI Medical History: Denies: Hx Hepatitis, Hx Hiatal Hernia, Hx Ulcer Musculoskeletal Medical History: Denies Hx Arthritis Infectious Medical History: Denies: Hx Hepatitis Past Surgical History: Reports: Hx Hysterectomy. Denies: Hx Mastectomy, Hx Open Heart Surgery, Hx Pacemaker - Immunizations Hx Diphtheria, Pertussis, Tetanus Vaccination: Yes Physical Exam - Vital signs Vitals: Temp Pulse Resp BP Pulse Ox 97.7 F 57 L 16 145/81 H 95 09/22/20 09:01 09/22/20 09:01 09/22/20 09:01 09/22/20 09:01 09/22/20 09:01 Course - Re-evaluation Re-evalutation: 09/22/20 18:31 Dr. Cisneros took over care of this patient - Vital Signs Vital signs: Temp Pulse Resp BP Pulse Ox 97.9 F 57 L 13 139/73 H 99 09/22/20 15:55 09/22/20 09:01 09/22/20 15:55 09/22/20 15:55 09/22/20 15:55 - Laboratory Results Result Diagrams: 09/22/20 11:10 09/22/20 11:10 Laboratory Results Interpreted: 09/22/20 09/22/20 11:10 11:10 Lymph % (Auto) 11.7 L Seg Neutrophils % 81.0 H Calcium 10.5 H AST 54 H ALT 53 H Alkaline Phosphatase 131 H Critical Laboratory Results Reviewed: No Critical Results - Radiology Results Critical Radiology Results Reviewed: No Critical Results Discharge - Discharge Clinical Impression: Abdominal pain Qualifiers: Abdominal location: right upper quadrant Qualified Code(s): R10.11 - Right upper quadrant pain Condition: Stable Disposition: HOME, SELF-CARE Additional Instructions: He was strongly advised to stop smoking. Because of abnormalities of your liver function testing were also recommend that you reduce your eliminate your consumption of beer. Return here as needed for new or worsening symptoms: Pain that is worsening or unimproved Uncontrolled vomiting High fever or shaking chills Overall worsening Call your licensed surveyor Dr. Cantu at tomorrow and he will arrange office follow-up for you within the next several days. Forms: Smoking Cessation Education Referrals: CHRISTINA CANTU MD [Primary Care Provider] - Follow up as needed
--- NOTE | 2020-09-22 10:56 | RADIOLOGY REPORT (SQ) ---
EXAM DESCRIPTION: CHEST SINGLE VIEW IMAGES COMPLETED DATE/TIME: 09/22/2020 10:46 am REASON FOR STUDY: left sided chest pain COMPARISON: 2019. NUMBER OF VIEWS: One view. TECHNIQUE: Single frontal radiographic view of the chest acquired. LIMITATIONS: None. FINDINGS: LUNGS AND PLEURA: No opacities, masses or pneumothorax. No pleural effusion. MEDIASTINUM AND HILAR STRUCTURES: No masses. Contour normal. HEART AND VASCULAR STRUCTURES: Heart normal in size. Normal vasculature. BONES: No acute findings. HARDWARE: None in the chest. OTHER: No other significant finding. IMPRESSION: NO SIGNIFICANT RADIOGRAPHIC FINDING IN THE CHEST. TECHNICAL DOCUMENTATION: JOB ID: [id number] 2010 [employer]- All Rights Reserved Reading location - IP/workstation name: [email or web address]
[2020-09-22 11:31] LABS: ABSOLUTE BASOPHILS # (AUTO) 0.1 10^3/uL (0.0-0.2); ABSOLUTE EOSINOPHILS # (AUTO) 0.1 10^3/uL (0.0-0.6); ABSOLUTE LYMPHOCYTES (AUTO) 1.2 10^3/uL (0.5-4.7); ABSOLUTE MONOCYTES (AUTO) 0.6 10^3/uL (0.1-1.4); BASOPHILS % (AUTO) 0.7 % (0-2); EOSINOPHILS % (AUTO) 0.9 % (0-6); HEMATOCRIT 42.3 % (36.0-47.0); HEMOGLOBIN 14.9 g/dL (12.0-15.5); LYMPHOCYTES % (AUTO) 11.7 % (13-45); MEAN CORPUSCULAR HEMOGLOBIN 31.5 pg (27.0-33.4); MEAN CORPUSCULAR HGB CONC 35.1 g/dL (32.0-36.0); MEAN CORPUSCULAR VOLUME 90 fl (80-97); MONOCYTES % (AUTO) 5.7 % (3-13); PLATELET COUNT 182 10^3/uL (150-450); RED BLOOD COUNT 4.73 10^6/uL (3.72-5.28); RED CELL DISTRIBUTION WIDTH 12.6 % (11.5-14.0); TOTAL CELLS COUNTED % (AUTO) 100 %; WHITE BLOOD COUNT 9.9 10^3/uL (4.0-10.5)
[2020-09-22 11:55] LABS: ALBUMIN 4.3 g/dL (3.5-5.0); ALKALINE PHOSPHATASE 131 U/L (38-126); ANION GAP 7 (5-19); ASPARTATE AMINO TRANSFERASE 54 U/L (14-36); BILIRUBIN,DIRECT 0.1 mg/dL (0.0-0.4); BILIRUBIN,TOTAL 0.8 mg/dL (0.2-1.3); BLOOD UREA NITROGEN 10 mg/dL (7-20); CALCIUM 10.5 mg/dL (8.4-10.2); CARBON DIOXIDE 25 mmol/L (22-30); CHLORIDE 107 mmol/L (98-107); CREATINE KINASE 56 U/L (30-135); GLUCOSE 91 mg/dL (75-110); POTASSIUM 4.4 mmol/L (3.6-5.0); TOTAL PROTEIN 7.3 g/dL (6.3-8.2)
[2020-09-22 12:07] LABS: CREATINE KINASE MB 1.01 ng/mL (<4.55); TROPONIN I < 0.012 ng/mL
--- NOTE | 2020-09-22 12:32 | ER Document Report ---
ED General - General Chief Complaint: Chest Pain Stated Complaint: BREATHING DIFFICULTY Time Seen by Provider: 09/22/20 12:00 Primary Care Provider: CHRISTINA CANTU MD [Primary Care Provider] - Follow up as needed TRAVEL OUTSIDE OF THE [place] IN LAST 30 DAYS: No - HPI Notes: Chief complaint: Upper abdomen and chest pain History of present illness: 69-year-old female awakened overnight with discomfort in epigastrium and right upper quadrant radiating through to the back and up into the chest which hurt intermittently over about a 2 to 3-hour.. She became nauseated and vomited once. She denies diaphoresis. She was transiently dyspneic with this. She denies fever. She denies sputum production. Patient denies any known history of thromboembolic disease. She denies any recent travel, injury or surgery. She is not on any hormonal medication. Patient is a pack per day smoker. She has a history of hyperlipidemia. Family history is positive for CAD. She denies any history of hypertension or diabetes mellitus. She denies any history of use of cocaine. Patient reports that she had a treadmill test performed by Dr. Cantu about 2 years ago and was told this was normal. HEART Score: HISTORY 1 ECG 0 AGE 2 RISK FACTORS 2 TROPONIN 0 TOTAL: 5 If HEART score is < or = 3 AND both tronponin measurments are normal, the 30 day risk of a major adverse cardiac event (all-cause mortality, myocardia infarction or need for coronary revscularization) is < 1% (Sensitivity 100%, NPV 100%). - Related Data Allergies/Adverse Reactions: oxycodone HCl [From Percocet] Allergy (Intermediate, Verified 12/02/18 14:31) Generalized Itching Home Medications: atorvastatin Past Medical History - General Information source: Patient - Social History Smoking Status: Current Every Day Smoker Frequency of alcohol use: Social - Three beers per day Drug Abuse: None Lives with: Spouse/Significant other Family History: CAD - Father of a massive [place] in his 60s, the mother is al jose antonio and well and quite active at 78. The patient reports that phenotypically she looks like her mother. - Past Medical History Cardiac Medical History: Reports: Hx Hypercholesterolemia Denies: Hx Coronary Artery Disease, Hx Heart Attack, Hx Hypertension Pulmonary Medical History: Reports: Hx Bronchitis, Hx Pneumonia Denies: Hx Asthma, Hx COPD Neurological Medical History: Denies: Hx Cerebrovascular Accident, Hx Seizures Endocrine Medical History: Denies: Hx Diabetes Mellitus Type 1, Hx Diabetes Mellitus Type 2 Renal/ Medical History: Denies: Hx Peritoneal Dialysis Malignancy Medical History: Reports: None GI Medical History: Reports: Other - No known history of gallstones. Denies: Hx Hepatitis, Hx Hiatal Hernia, Hx Ulcer Musculoskeletal Medical History: Denies Hx Arthritis Infectious Medical History: Denies: Hx Hepatitis Past Surgical History: Reports: Hx Hysterectomy. Denies: Hx Mastectomy, Hx Open Heart Surgery, Hx Pacemaker - Immunizations Hx Diphtheria, Pertussis, Tetanus Vaccination: Yes Review of Systems - Review of Systems Notes: Constitutional: Negative for fever. HENT: Negative for sore throat. Eyes: Negative for visual changes. Cardiovascular: As per HPI. Respiratory: As per HPI. Gastrointestinal: As per HPI. Genitourinary: Negative for dysuria. Musculoskeletal: Negative for back pain. Skin: Negative for rash. Neurological: Negative for headaches, weakness or numbness. 10 point ROS negative except as marked above and in HPI. Physical Exam - Vital signs Vitals: Temp Pulse Resp BP Pulse Ox 97.7 F 57 L 16 145/81 H 95 09/22/20 09:01 09/22/20 09:01 09/22/20 09:01 09/22/20 09:01 09/22/20 09:01 - Notes Notes: GENERAL: Well-developed well-nourished female approximately stated age appearing in no acute distress. SKIN: Good turgor no rashes. HEAD: Normocephalic atraumatic. EYES: PERRLA. EOMI. Conjunctivae and sclerae clear. EARS: CANALS AND TMS CLEAR. NOSE: CLEAR. MOUTH: Moist mucosa. Good dentition. No stridor or edema. No drooling. NECK: Supple. No masses or thyromegaly. No adenopathy. Carotids 2+ without bruits. No JVD. BACK: Symmetrical without tenderness. CHEST: Respirations unlabored. Breath sounds clear and symmetrical. HEART: Regular rhythm. No murmur gallop or rub. ABDOMEN: Minimal tenderness on deep palpation in epigastrium. Soft without masses, organomegaly or rebound. Bowel sounds normally active. No bruits. GENITALIA: Deferred. EXTREMITIES: No edema. No calf tenderness. Cap refill less than 1.5 seconds. Dorsalis pedis and posterior tibial pulses 3+ and symmetrical. NEUROLOGICAL: GCS 15. Alert and oriented x3. Normal gait. Fluent speech. Cranial nerves II through XII intact. Sensorimotor and cerebellar normal. Normal tone. PSYCHIATRIC: Appropriate affect. Course - Re-evaluation Re-evalutation: 09/22/20 15:40 This 69-year-old lady with multiple coronary risk factors who actually had a negative treadmill test 2 years ago. She came in with some suspicious upper abdominal pain radiating into her chest but her EKG was normal and she has had 2 - troponins 3 hours apart. She has had no recurrence of pain while she has been in the emergency department. She has some mild elevation of her transaminase values and for this reason I got a gallbladder ultrasound. This was reported as negative and she really does not have any substantial tenderness on exam. She has no fever no elevation of her white count. Further history reveals that she consumes in excess 3 beers a day and this is probably the reason for mild e levation of transaminases. Findings have been reviewed with her supervisor tumbling and rolling Dr. Cantu by telephone. He feels very comfortable with us discharging this lady and she is going to call him tomorrow morning at area code [phone] to schedule office follow-up within the next 24 to 48 hours. We reviewed red flag symptoms for early return to the emergency department otherwise. Findings, clinical impression and plan of treatment have been discussed with patient/family. Understanding of current findings and recommendations has been acknowledged by them and there is agreement regarding disposition and follow-up. - Vital Signs Vital signs: Temp Pulse Resp BP Pulse Ox 97.7 F 57 L 21 H 138/89 H 97 09/22/20 09:01 09/22/20 09:01 09/22/20 13:00 09/22/20 11:01 09/22/20 13:00 - Laboratory Results Result Diagrams: 09/22/20 11:10 09/22/20 11:10 Laboratory Results Interpreted: 09/22/20 09/22/20 11:10 11:10 Lymph % (Auto) 11.7 L Seg Neutrophils % 81.0 H Calcium 10.5 H AST 54 H ALT 53 H Alkaline Phosphatase 131 H Critical Laboratory Results Reviewed: No Critical Results - Radiology Results Radiology Results Interpreted: 09/22/20 15:37 Chest X-Ray 09/22/20 10:27 IMPRESSION: NO SIGNIFICANT RADIOGRAPHIC FINDING IN THE CHEST. Abdomen Ultrasound 09/22/20 12:27 IMPRESSION: NORMAL RIGHT UPPER QUADRANT ULTRASOUND. Critical Radiology Results Reviewed: No Critical Results Discharge - Discharge Clinical Impression: Abdominal pain Qualifiers: Abdominal location: right upper quadrant Qualified Code(s): R10.11 - Right upper quadrant pain Condition: Stable Disposition: HOME, SELF-CARE Additional Instructions: He was strongly advised to stop smoking. Because of abnormalities of your liver function testing were also recommend that you reduce your eliminate your consumption of beer. Return here as needed for new or worsening symptoms: Pain that is worsening or unimproved Uncontrolled vomiting High fever or shaking chills Overall worsening Call your supervisor tumbling and rolling Dr. Cantu at tomorrow and he will arrange office follow-up for you within the next several days. Forms: Smoking Cessation Education Referrals: CHRISTINA CANTU MD [Primary Care Provider] - Follow up as needed
--- NOTE | 2020-09-22 15:27 | RADIOLOGY REPORT (SQ) ---
EXAM DESCRIPTION: U/S ABDOMEN LIMITED W/O DOP IMAGES COMPLETED DATE/TIME: 09/22/2020 3:12 pm REASON FOR STUDY: RUQ pain COMPARISON: None. TECHNIQUE: Dynamic and static grayscale images acquired of the abdomen and recorded on PACS. Additio nal selected color Doppler and spectral images recorded. LIMITATIONS: None. FINDINGS: PANCREAS: No masses. Visualized pancreatic duct normal caliber. LIVER: No masses. Echotexture normal. LIVER VASCULATURE: Normal directional flow of the main portal vein and hepatic veins. GALLBLADDER: No stones. Normal wall thickness. No pericholecystic fluid. ULTRASOUND-DETECTED RODRIGUEZ'S SIGN: Negative. INTRAHEPATIC DUCTS AND COMMON DUCT: CBD and intrahepatic ducts normal caliber. No filling defects. INFERIOR VENA CAVA: Normal flow. AORTA: No aneurysm. RIGHT KIDNEY: Normal size. Normal echogenicity. No solid or suspicious masses. No hydronephrosis. No calcifications. PERITONEAL AND RIGHT PLEURAL SPACE: No ascites or effusions. OTHER: No other significant findings. IMPRESSION: NORMAL RIGHT UPPER QUADRANT ULTRASOUND. TECHNICAL DOCUMENTATION: JOB ID: [id number] [employer]- All Rights Reserved Reading location - IP/workstation name: [email or web address]
[2020-09-22 16:02] VITALS: BP 139/73
--- NOTE | 2020-09-22 18:51 | EKG REPORT ---
SEVERITY:- ABNORMAL ECG - SINUS BRADYCARDIA PROBABLE LEFT ATRIAL ABNORMALITY LEFT ANTERIOR FASCICULAR BLOCK : Confirmed by: Marek Uribe MD 22-Sep-2020 18:50:47
== END 2020-09-22 16:02 | disposition home or self-care (01) ==
LOC: ER 08:56
DX: R10.11 Right upper quadrant pain (principal); R07.9 Chest pain, unspecified; R06.00 Dyspnea, unspecified; F17.210 Nicotine dependence, cigarettes, uncomplicated; E78.00 Pure hypercholesterolemia, unspecified; Z90.710 Acquired absence of both cervix and uterus; Z20.822 Contact with and (suspected) exposure to COVID-19
CPT/HCPCS: 93005; 99285; 36415; 82553; 82550; 85025; 0241U ×4; 80053; 84484; 85379; 71045; 76705; 93010; C9803